=== PATIENT | female | born 1940 | race Caucasian/White ===

== ENCOUNTER 2016-11-18 20:12 | Inpatient (IN) | payer MEDICARE, BC ==
[~2016-11-18] VITALS: Ht 160 cm; Wt 77.9 kg
[2016-11-18] MEDS ORDERED: NEURONTIN300 MG/CAP PO (20:54)
[2016-11-18] MEDS ORDERED: COZAAR 25MG25 MG/TAB PO (20:54)
[2016-11-18] MEDS ORDERED: MUCINEX 60600 MG/TA1 PO (20:55)
[2016-11-18] MEDS ORDERED: MAGNESIUM250 M1 PO (20:55)
[2016-11-18] MEDS ORDERED: HYZAAR 25 MG-101 TAB PO (21:05)
[2016-11-18 21:39] LABS: BASO % 0.2 % (0.0-2.0); EOS % 0.1 % (0-4.0); GRAN # 9.9 (1.4-6.5); LYMPH # 1.2 (1.2-3.4); LYMPH % 9.8 % (20.0-51.0); MEAN CELL VOLUME 91 fl (80.0-100.0); MEAN CORPUSCULAR HGB CONC 35 g/dl (33.0-37.0); MEAN PLATELET VOLUME 9.5 fl (7.4-10.4); MONO # 1.2 (0.1-0.6); MONO % 9.9 % (1.7-9.3); PLATELET COUNT 316 K/mm3 (130-400); RED BLOOD COUNT 3.64 M/mm3 (4.10-5.30); REDCELL DISTRIBUTION WIDTH-CV 12.3 % (11.5-14.5); WHITE BLOOD COUNT 12.5 K/mm3 (4.8-10.8)
[2016-11-18 21:45] LABS: HEMATOCRIT 33.2 % (37.0-47.0); HEMOGLOBIN 11.6 g/dl (12.5-16.0); MEAN CORPUSCULAR HEMOGLOBIN 32 pg (27.0-31.0)
[2016-11-18 21:55] LABS: ADJUSTED CALCIUM 9.6 mg/dL (8.4-10.2); ALANINE AMINOTRANSFERASE 50 U/L (9-52); ALBUMIN 4.1 gm/dL (3.5-5.0); ALKALINE PHOSPHATASE 88 U/L (50-136); ANION GAP 15 mmol/L (7-16); BILIRUBIN,TOTAL 1.4 mg/dL (0.0-1.0); BLOOD UREA NITROGEN 29 mg/dL (7-17); CALCIUM 9.7 mg/dL (8.4-10.2); CARBON DIOXIDE 22 mmol/L (22-30); CHLORIDE 91 mmol/L (98-107); CREATININE, serum 1.61 mg/dL (0.52-1.25); GLUCOSE 111 mg/dL (74-106); SODIUM 128 mmol/L (137-145); TOTAL PROTEIN 7.9 gm/dL (6.4-8.2)
[2016-11-18 22:04] LABS: B-TYPE NATRIURETIC PEPTIDE 319 pg/mL (0-450); TROPONIN-I < 0.012 ng/mL (0.000-0.034)
[2016-11-18 22:09] LABS: C-REACTIVE PROTEIN 14.6 mg/dL (0.0-0.9)
[2016-11-18 22:20] LABS: PH 6 (5-8); SQUAMOUS EPITHELIAL 0-2 /hpf; URINE APPEARANCE Clear; URINE BACTERIA Rare /hpf; URINE BILIRUBIN Negative (NEGATIVE); URINE BLOOD Negative (NEGATIVE); URINE COLOR Yellow; URINE GLUCOSE Negative (NEGATIVE); URINE KETONE Trace (NEGATIVE); URINE UROBILINOGEN >=4.0 mg/dL (NEGATIVE)
[2016-11-18 22:47] LABS: INFLUENZA B NEGATIVE
[2016-11-18 23:52] VITALS: BP 113/76; PULSE 79; TEMP 98
[2016-11-19] MEDS ORDERED: NYQUIL GENERIC PO (00:16)
[2016-11-19 04:36] VITALS: BP 116/49; PULSE 77; TEMP 98.3
[2016-11-19 08:16] VITALS: BP 104/52; PULSE 66; TEMP 97.8
[2016-11-19 09:37] LABS: CALCIUM 8.8 mg/dL (8.4-10.2); CREATININE, serum 1.52 mg/dL (0.52-1.25); POTASSIUM 4.2 mmol/L (3.4-5.0)
[2016-11-19 11:10] LABS: FRACTIONAL EXCRETION OF NA+ 0.7 %
[2016-11-19 13:19] VITALS: BP 108/53; PULSE 58; TEMP 98.5
[2016-11-19 16:34] VITALS: BP 105/55; PULSE 62; TEMP 97.9
[2016-11-19 20:08] VITALS: BP 116/51; PULSE 58; TEMP 98.2
[2016-11-19 23:29] VITALS: BP 112/49; PULSE 74; TEMP 98
[2016-11-20 03:09] VITALS: BP 118/55; PULSE 54; TEMP 98.2
[2016-11-20 08:01] VITALS: BP 142/55; PULSE 61; TEMP 98.9
[2016-11-20 10:06] LABS: BASO % 0.1 % (0.0-2.0); EOS % 0.5 % (0-4.0); GRAN # 6.5 (1.4-6.5); GRAN % 78.5 % (42.2-75.2); LYMPH # 0.9 (1.2-3.4); LYMPH % 10.6 % (20.0-51.0); MEAN CORPUSCULAR HGB CONC 33 g/dl (33.0-37.0); MEAN PLATELET VOLUME 9.8 fl (7.4-10.4); MONO # 0.7 (0.1-0.6); MONO % 8.9 % (1.7-9.3); PLATELET COUNT 331 K/mm3 (130-400); RED BLOOD COUNT 2.97 M/mm3 (4.10-5.30); REDCELL DISTRIBUTION WIDTH-CV 12.5 % (11.5-14.5); WHITE BLOOD COUNT 8.3 K/mm3 (4.8-10.8)
[2016-11-20 10:19] LABS: HEMATOCRIT 28.6 % (37.0-47.0); HEMOGLOBIN 9.4 g/dl (12.5-16.0); MEAN CELL VOLUME 96 fl (80.0-100.0); MEAN CORPUSCULAR HEMOGLOBIN 32 pg (27.0-31.0)
[2016-11-20 10:28] LABS: CALCIUM 8.4 mg/dL (8.4-10.2); CREATININE, serum 1.37 mg/dL (0.52-1.25)
[2016-11-20 11:55] VITALS: BP 123/53; PULSE 54; TEMP 98.4
[2016-11-20 15:33] VITALS: BP 153/59; PULSE 58; TEMP 98.3
[2016-11-20 19:58] VITALS: BP 142/55; PULSE 53; TEMP 97.3
[2016-11-20 23:19] VITALS: BP 135/60; PULSE 42; TEMP 97.4
[2016-11-21 04:32] VITALS: BP 131/54; PULSE 44; TEMP 97.4
[2016-11-21 08:23] VITALS: BP 143/63; PULSE 52; TEMP 97.7
[2016-11-21 09:37] LABS: BASO % 0.1 % (0.0-2.0); EOS % 0.1 % (0-4.0); GRAN # 5.7 (1.4-6.5); GRAN % 71.7 % (42.2-75.2); LYMPH # 1.3 (1.2-3.4); LYMPH % 15.9 % (20.0-51.0); MEAN CELL VOLUME 97 fl (80.0-100.0); MEAN CORPUSCULAR HGB CONC 33 g/dl (33.0-37.0); MEAN PLATELET VOLUME 9.9 fl (7.4-10.4); MONO # 0.9 (0.1-0.6); MONO % 10.8 % (1.7-9.3); PLATELET COUNT 342 K/mm3 (130-400); RED BLOOD COUNT 2.96 M/mm3 (4.10-5.30); REDCELL DISTRIBUTION WIDTH-CV 12.4 % (11.5-14.5); WHITE BLOOD COUNT 7.9 K/mm3 (4.8-10.8)
[2016-11-21 09:40] LABS: HEMATOCRIT 28.6 % (37.0-47.0); HEMOGLOBIN 9.3 g/dl (12.5-16.0); MEAN CORPUSCULAR HEMOGLOBIN 31 pg (27.0-31.0)
[2016-11-21 09:49] LABS: CALCIUM 8.5 mg/dL (8.4-10.2); CREATININE, serum 1.16 mg/dL (0.52-1.25); POTASSIUM 3.9 mmol/L (3.4-5.0)
[2016-11-21 12:21] VITALS: BP 144/66; PULSE 46; PULSE 57; TEMP 97.9
[2016-11-21 17:18] VITALS: BP 147/55; PULSE 47; TEMP 98.3
[2016-11-21 20:25] VITALS: BP 157/65; PULSE 56; TEMP 98.1
[2016-11-22 00:10] VITALS: BP 159/54; PULSE 47; TEMP 97.7
[2016-11-22 03:46] VITALS: BP 138/58; PULSE 49; TEMP 97.9
[2016-11-22 07:12] LABS: MEAN CELL VOLUME 95 fl (80.0-100.0); MEAN CORPUSCULAR HGB CONC 33 g/dl (33.0-37.0); MEAN PLATELET VOLUME 9.8 fl (7.4-10.4); PLATELET COUNT 356 K/mm3 (130-400); RED BLOOD COUNT 2.91 M/mm3 (4.10-5.30); REDCELL DISTRIBUTION WIDTH-CV 12.3 % (11.5-14.5); WHITE BLOOD COUNT 7.7 K/mm3 (4.8-10.8)
[2016-11-22 07:18] LABS: CALCIUM 8.8 mg/dL (8.4-10.2); CREATININE, serum 1.17 mg/dL (0.52-1.25); POTASSIUM 4.1 mmol/L (3.4-5.0)
[2016-11-22 07:21] LABS: ADD PATHOLOGY DIFF REVIEW NO; HEMATOCRIT 27.6 % (37.0-47.0); HEMOGLOBIN 9.1 g/dl (12.5-16.0); MEAN CORPUSCULAR HEMOGLOBIN 31 pg (27.0-31.0)
[2016-11-22 08:15] LABS: BAND 2 % (0-10); NEUTROPHILS 71 % (42.0-75.2); TOTAL CELLS COUNTED 100
[2016-11-22 08:16] LABS: PLATELET ESTIMATE NORMAL (NORMAL)
[2016-11-22 08:25] VITALS: BP 150/57; PULSE 50; TEMP 97.8
[2016-11-22] MEDS ORDERED: CLARITIN 1010 MG/TAB PO (10:43)
[2016-11-22] MEDS ORDERED: PROAIR HFA0.09 MG/AC IH (10:44)
[2016-11-22] MEDS ORDERED: OMNICEF 300MG300 MG PO (10:44)
[2016-11-22] MEDS ORDERED: FLONASE NASAL S16 GM NS (10:48)
[2016-11-22] MEDS ORDERED: ROBITUSSIN A-C S1 M1 PO (10:49)
[2016-11-22] MEDS ORDERED: PREDNISONE20 MG PO (10:58)
[2016-11-22] MEDS ORDERED: COZAAR100 MG PO (11:11)
[2016-11-22 12:19] VITALS: BP 136/61; PULSE 62; TEMP 97.8
== END 2016-11-22 12:40 | disposition home or self-care (01) | DRG 194 ==
LOC: COL.ER 20:12 → MEDICAL 22:46
PROVIDERS: Emergency Medicine; Internal Medicine; Nurse Practitioner Family
DX: J18.9 Pneumonia, unspecified organism (principal); N17.9 Acute kidney failure, unspecified; N39.0 Urinary tract infection, site not specified; E87.1 Hypo-osmolality and hyponatremia; J20.9 Acute bronchitis, unspecified; E86.0 Dehydration; I10 Essential (primary) hypertension; D64.9 Anemia, unspecified; Z87.891 Personal history of nicotine dependence; J01.90 Acute sinusitis, unspecified
CPT/HCPCS: 99223-AI; 99232-AI; 99239; J0456; J0696; J1644; J2405; J7030; J7050; J7512

== ENCOUNTER → 2017-05-20 | Outpatient (CLI) | payer MEDICARE, BC ==
[~2017-05-20] MED LIST: CLARITIN 1010 MG/TAB PO; COZAAR 25MG25 MG/TAB PO; COZAAR100 MG PO; FLONASE NASAL S16 GM NS; HYZAAR 25 MG-101 TAB PO; MAGNESIUM250 M1 PO; MUCINEX 60600 MG/TA1 PO; NEURONTIN300 MG/CAP PO; NYQUIL GENERIC PO; OMNICEF 300MG300 MG PO; PREDNISONE20 MG PO; PROAIR HFA0.09 MG/AC IH; ROBITUSSIN A-C S1 M1 PO
== END ==
LOC: MC.RAD 11:20
DX: Z12.31 Encounter for screening mammogram for malignant neoplasm of breast (principal)

== ENCOUNTER 2017-11-18 10:42 | Emergency (ER) | payer MEDICARE, BC ==
[~2017-11-18] VITALS: Ht 160 cm; Wt 69.1 kg
[2017-11-18 10:54] VITALS: BP 191/84; PULSE 55; TEMP 97.5
== END 2017-11-18 12:55 | disposition home or self-care (01) ==
LOC: COL.ER 10:42
DX: S01.81XA Laceration without foreign body of other part of head, initial encounter (principal); S41.112A Laceration without foreign body of left upper arm, initial encounter; I10 Essential (primary) hypertension; W18.39XA Other fall on same level, initial encounter; W22.8XXA Striking against or struck by other objects, initial encounter; Y92.009 Unspecified place in unspecified non-institutional (private) residence as the place of occurrence of the external cause; Y93.B9 Activity, other involving muscle strengthening exercises

== ENCOUNTER 2017-11-24 13:58 | Emergency (ER) | payer MEDICARE, BC ==
[2017-11-24 14:10] VITALS: BP 134/92; PULSE 51; TEMP 98.1
[2017-11-24] MEDS ORDERED: CEPHALEXIN500 M1 PO (14:38)
== END 2017-11-24 14:55 | disposition home or self-care (01) ==
LOC: COL.ER 13:58
DX: S01.81XD Laceration without foreign body of other part of head, subsequent encounter (principal); X58.XXXD Exposure to other specified factors, subsequent encounter

== ENCOUNTER 2018-05-27 16:11 | Emergency (ER) | payer MEDICARE, BC ==
[~2018-05-27] VITALS: Ht 157.5 cm; Wt 65.9 kg
[~2018-05-27 16:11] MED LIST changes: +CEPHALEXIN500 M1 PO
[2018-05-27 16:23] VITALS: BP 164/80; PULSE 59; TEMP 98.6
== END 2018-05-27 17:49 | disposition home or self-care (01) ==
LOC: COL.ER 16:11
DX: L08.9 Local infection of the skin and subcutaneous tissue, unspecified (principal)

== ENCOUNTER → 2018-06-20 | Outpatient (CLI) | payer MEDICARE, BC | LOC: MC.RAD 11:40 | DX: Z12.31 Encounter for screening mammogram for malignant neoplasm of breast (principal) ==

== ENCOUNTER → 2019-09-21 | Outpatient (CLI) | payer MEDICARE, BC ==
[~2019-09-21] MED LIST changes: +CALTRATE 600 +1 TAB PO; +DULCOLAX STOOL100 MG PO; +MAG-OX 400400 MG/TAB PO; +NEURONTIN600 MG/TAB PO; +PERCOCET 325 MG1 TA2 PO; +TOPROL XL100 MG PO; +TYLENOL PM EXTR1 TA1 PO; +UNISOM25 MG PO; +VITAMIND3 5000 PO
== END ==
LOC: MC.RAD 10:26
DX: Z12.31 Encounter for screening mammogram for malignant neoplasm of breast (principal)

== ENCOUNTER 2020-06-04 11:44 | Day surgery (SDC) | payer MEDICARE, BC ==
[~2020-06-04] VITALS: Ht 162.6 cm; Wt 80.1 kg
[2020-06-04] VITALS (93 sets, daily range): BP systolic 114–184; BP diastolic 48–91; PULSE 51–70; TEMP 97.5–99.2; O2SAT 94–100
[2020-06-04] MEDS ORDERED: TOPROL XL100 MG PO (12:36)
[2020-06-04] MEDS ORDERED: ASPIRIN E.C. 8181 MG PO (12:39)
[2020-06-04] MEDS ORDERED: NITRO-DUR0.1 MG/PAT TD (12:40)
[2020-06-04 13:13] LABS: HEMATOCRIT 38.2 % (37.0-47.0); HEMOGLOBIN 12.8 g/dl (12.5-16.0); MEAN CELL VOLUME 95 fl (80.0-100.0); MEAN CORPUSCULAR HEMOGLOBIN 32 pg (27.0-31.0); MEAN CORPUSCULAR HGB CONC 34 g/dl (33.0-37.0); MEAN PLATELET VOLUME 10.3 fl (7.4-10.4); PLATELET COUNT 187 K/mm3 (130-400); RED BLOOD COUNT 4.03 M/mm3 (4.10-5.30)
[2020-06-04 13:14] LABS: PROTHROMBIN TIME 10.6 SECONDS (9.7-12.8)
[2020-06-04 13:17] LABS: PARTIAL THROMBOPLASTIN TIME 20.5 SECONDS (26.0-37.0)
[2020-06-04 13:26] LABS: CALCIUM 9.3 mg/dL (8.4-10.2); CREATININE, serum 1.27 (0.52-1.25); POTASSIUM 4.2 mmol/L (3.4-5.0)
--- NOTE | 2020-06-04 13:51 | NUR ---
SEE MERGE FOR MEDICATION ADMINISTRATION TIMES AND INTRA AND POST SEDATION ASSESSMENTS.
--- NOTE | 2020-06-04 15:25 | NUR ---
Pt is back from concrete laborer, she is awake and alert, pwd, no chest pain. nitro drip infusing at 10mcg/min to RAC with 1/2 ns carrier at 100cc/hr. Rt radial site looks good without any bleeding or hematoma, no numbness reported to rt hand. cms intact. wctm.
--- NOTE | 2020-06-04 15:26 | NUR ---
PT TRANSPORTED BACK TO [facility] FROM [facility] UNTIL ADMISSIONS HAS A ROOM AVAILABLE. PT IS ALERT AND ORIENTED. PT HAS NITROGLYCERIN INFUSING AT 10MCG/HR PER DR. KEVIN CRESPO. HEMOSTASIS NOTED TO RIGHT WRIST, TR BAND IN PLACE WITH 11 IN THE BAND. PT HAS NO CONCERNS OR NEEDS AT THIS TIME. AMY VITALE WILL ASSUME CARE AND HAS RECIEVED BEDSIDE REPORT FROM THIS NURSE.
--- NOTE | 2020-06-04 18:29 | NUR ---
PT UP TO BS COMMODE AT THIS TIME. STEADY ON HER FEET. DINNER ORDERED.
--- NOTE | 2020-06-04 18:48 | NUR ---
Pt is sitting up at edge of bed, she has been able to eat dinner with no problem, tightness under ribcage has gone away/ pt does report neck and back stiffness. Neck and back massaged with some relief.
--- NOTE | 2020-06-04 19:30 | NUR ---
PT TRASNFERRED BY AMBULATION TO ICU 6. BEDSIDE REPORT RECEIVED FROM AMY VITALE FROM [facility]. PT PLACED ON BEDSIDE CONTINUOUS MONITOR AND CALL LIGHT EDUCAITON GIVEN, VERBALIZED UNDERSTANDING. PT PLACED IN RECLINER AND CALL LIGHT WITHIN REACH. VSS. PT DENIES ANY CP/PRESSURE. PT ON RA.
--- NOTE | 2020-06-04 19:30 | NUR ---
TR BAND OFF AT 1900, SITE DRESSED WITH BANDAID, THEN FOLDED 2X2 WITH COBAN DRESSING. CMS REMAINS INTACT, NO HEMATOMA OR BLEEDING AT THIS TIME. SPLINT REAPPLIED. PT IS AMBULATORY WITH STEADY GAIT TO BATHROOM, THEN TO HER ROOM IN ICU WHERE BEDSIDE REPORT IS GIVEN TO KALEIGH REYES.
[2020-06-05] VITALS (368 sets, daily range): BP systolic 122–126; BP diastolic 53–77; PULSE 60–70; TEMP 97.6–98.4; O2SAT 92–100
[2020-06-05 07:04] LABS: RED BLOOD COUNT 3.84 M/mm3 (4.10-5.30)
[2020-06-05 07:05] LABS: BASO % 0.3 % (0.0-2.0); EOS # 0.2 (0.0-0.7); EOS % 2.2 % (0-4.0); GRAN # 4.9 (1.4-6.5); GRAN % 70.5 % (42.2-75.2); HEMATOCRIT 36.1 % (37.0-47.0); HEMOGLOBIN 12.1 g/dl (12.5-16.0); LYMPH # 1.2 (1.2-3.4); LYMPH % 17.3 % (20.0-51.0); MEAN CELL VOLUME 94 fl (80.0-100.0); MEAN CORPUSCULAR HEMOGLOBIN 32 pg (27.0-31.0); MEAN CORPUSCULAR HGB CONC 34 g/dl (33.0-37.0); MONO # 0.7 (0.1-0.6); MONO % 9.4 % (1.7-9.3); PLATELET COUNT 189 K/mm3 (130-400); REDCELL DISTRIBUTION WIDTH-CV 13.1 % (11.5-14.5)
[2020-06-05 09:06] LABS: CALCIUM 8.9 mg/dL (8.4-10.2); CREATININE, serum 1.1 (0.52-1.25); POTASSIUM 3.7 mmol/L (3.4-5.0)
--- NOTE | 2020-06-05 10:03 | NUR ---
Initial visit; Patient thanked Insulation And Flooring Assembler for looking in on her and offering God's blessings.
[2020-06-05] MEDS ORDERED: BRILINTA90 MG PO (10:36)
[2020-06-05] MEDS ORDERED: LIPITOR 80MG80 MG PO (10:37)
--- NOTE | 2020-06-05 12:21 | NUR ---
Patient transfered from ICU to ED entrance for discharge at this time. Daughter met at entrance to drive patient home. Patient felt all questions had been answered and all belongings had been packed and take with for discharge.
--- NOTE | 2020-06-05 13:53 | NUR ---
Operations Lead met with patient to discuss discharge planning. Patient lives alone in [place] and sees Dr. Sy for primary care. Patient obtains medications from [facility] and is concerned about a new medications she was prescribed, Brillinta. YOLANDA contacted patient's pharmacy and even with insurance it will be approximately $400 per month. YOLANDA collaborated with [employer] who provided Brillinta card to patient, which will cover first month's supply. [employer] advised after one month, patient will be switched to Plavix. [facility] and was advised that francois rodríguez for this medication is $40 for thirty day supply. SW provided this update to patient who is in agreement and has no other concerns. Patient to return home today. No additional needs at this time.
== END 2020-06-05 12:21 | disposition home or self-care (01) ==
LOC: COL.CAR 11:44 → ICU 19:53 → COL.CAR 06-05 12:21
PROVIDERS: Internal Medicine Cardiovascular Disease
DX: I25.110 Atherosclerotic heart disease of native coronary artery with unstable angina pectoris (principal); I12.9 Hypertensive chronic kidney disease with stage 1 through stage 4 chronic kidney disease, or unspecified chronic kidney disease; N18.3 Chronic kidney disease, stage 3 (moderate); I08.1 Rheumatic disorders of both mitral and tricuspid valves; D64.9 Anemia, unspecified; E78.2 Mixed hyperlipidemia; I47.1 Supraventricular tachycardia; I83.90 Asymptomatic varicose veins of unspecified lower extremity; R00.1 Bradycardia, unspecified; M85.80 Other specified disorders of bone density and structure, unspecified site; G62.9 Polyneuropathy, unspecified; G47.00 Insomnia, unspecified; M48.02 Spinal stenosis, cervical region; M79.89 Other specified soft tissue disorders; I83.819 Varicose veins of unspecified lower extremity with pain; Z85.828 Personal history of other malignant neoplasm of skin; Z95.0 Presence of cardiac pacemaker; Z79.82 Long term (current) use of aspirin; Z79.899 Other long term (current) drug therapy; Z80.9 Family history of malignant neoplasm, unspecified; Z82.3 Family history of stroke; Z82.49 Family history of ischemic heart disease and other diseases of the circulatory system
CPT/HCPCS: OP; C1725; C1769; C1874; C1887; C9600; J0583; J1644; J2250; J3010; Q9967

== ENCOUNTER 2020-12-12 11:46 | Outpatient (RCR) | payer SELFPAY ==
[~2020-12-12 11:46] MED LIST changes: +ASPIRIN E.C. 8181 MG PO; +BRILINTA90 MG PO; +LIPITOR 80MG80 MG PO; +NITRO-DUR0.1 MG/PAT TD
== END 2020-12-14 | disposition home or self-care (01) ==
LOC: COL.CR
DX: Z02.89 Encounter for other administrative examinations (principal)

== ENCOUNTER 2021-03-11 17:07 | Outpatient (RCR) | payer SELFPAY ==
[2021-09-03] MEDS ORDERED: BRILINTA90 MG PO (12:08)
[2021-09-03] MEDS ORDERED: LIPITOR 80MG80 MG PO (12:10)
[2021-09-03] MEDS ORDERED: TOPROL XL 25MG25 MG PO (12:10)
[2021-09-03] MEDS ORDERED: TYLENOL PM EXTR1 TA1 PO (12:12)
[2021-09-03] MEDS ORDERED: LASIX 20MG TABL20 MG PO (12:13)
== END 2021-03-15 | disposition home or self-care (01) ==
LOC: COL.CR
DX: Z02.89 Encounter for other administrative examinations (principal)

== ENCOUNTER 2021-06-12 13:14 | Outpatient (RCR) | payer SELFPAY ==
[2021-09-03] MEDS ORDERED: BRILINTA90 MG PO (12:08)
[2021-09-03] MEDS ORDERED: TOPROL XL 25MG25 MG PO (12:10)
[2021-09-03] MEDS ORDERED: LIPITOR 80MG80 MG PO (12:10)
[2021-09-03] MEDS ORDERED: TYLENOL PM EXTR1 TA1 PO (12:12)
[2021-09-03] MEDS ORDERED: LASIX 20MG TABL20 MG PO (12:13)
== END 2021-06-14 | disposition home or self-care (01) ==
LOC: COL.CR
DX: Z02.89 Encounter for other administrative examinations (principal)

== ENCOUNTER → 2021-09-07 | Outpatient (CLI) | payer MEDICARE, BC ==
[~2021-09-07] VITALS: Ht 162.6 cm; Wt 56.1 kg
[~2021-09-07] MED LIST changes: +CITRUCEL WITH500 MG PO; +LASIX 20MG TABL20 MG PO; +ROXICODONE 55 MG/TAB PO; +TOPROL XL 25MG25 MG PO
[2021-09-07 13:25] VITALS: BP 127/83; PULSE 67
[2021-09-07 13:30] VITALS: BP 147/79; PULSE 61
[2021-09-07 13:45] VITALS: BP 136/71; PULSE 60
== END ==
LOC: COL.RAD 08-20 13:15
DX: H91.22 Sudden idiopathic hearing loss, left ear (principal)
CPT/HCPCS: J2250; J2704

== ENCOUNTER 2021-10-05 12:39 | Inpatient (IN) | payer MEDICARE, BC ==
[~2021-10-05] VITALS: Ht 157.5 cm; Wt 67.5 kg
[~2021-10-05 12:39] MED LIST changes: -CITRUCEL WITH500 MG PO; -ROXICODONE 55 MG/TAB PO
[2021-10-14] VITALS (10 sets, daily range): BP systolic 116–152; BP diastolic 53–73; PULSE 49–68; TEMP 98–978.3
--- NOTE | 2021-10-14 11:00 | NUR ---
PATIENT BROUGHT BACK TO [facility], AMBULATED WITHOUT DIFFICULTY. PATIENT IS ALERT AND ORIENTED. CONSENT AND HISTORY REVIEWED AND SIGNED. VITAL SIGNS STABLE. DAUGHTER DEMOND AT BEDSIDE. DENTURES, HEARING AID, AND GLASSES REMOVED AND LABELED. PLACED IN PATIENT BELONGINGS. IV STARTED TO RIGHT FOREARM, INFUSING WITHOUT DIFFICULTY. HEART SOUNDS REGULAR, LUNG SOUNDS CLEAR, BOWEL SOUNDS ACTIVE. WARM BLANKET PROVIDED, CALL PARRA WITHIN REACH. 1140- PER PROPERTY TECHNICIAN PLEASE BRING PATIENT TO PACU. TRANSPORTED VIA CART. DEANDRE BARCENAS AT BEDSIDE. JONE RN AT BEDSIDE. ALL BELONGINGS BROUGHT TO PACU. DAUGHTER PLACED IN WAITING ROOM. ALL SAFETY MAINTAINED.
[2021-10-14] MEDS ORDERED: CITRUCEL WITH500 MG PO (11:44)
--- NOTE | 2021-10-14 16:20 | NUR ---
Report received from Nadine MANUFACTURING ENGINEER. Patient had a right robotic hemicolectomy. Patient is A & O, talking, and vital signs are stable. Patient has NKA. Patient has 5 incisions covered with band-aids. Patient is not experiencing any discomfort at this time. Patient's daughter, Nisa, accompanied her to room. Call light and bedside table are within reach. Will continue to monitor patient throughout shift.
[2021-10-15 00:02] VITALS: BP 118/45; PULSE 60; TEMP 98.2
[2021-10-15 03:45] VITALS: BP 137/59; PULSE 63; TEMP 98.1
--- NOTE | 2021-10-15 06:19 | NUR ---
PT STATES THAT SHE THINKS SHE SLEPT WELL THROUGH NIGHT ON HER SIDE, STATES THAT BACK PAIN IS MUCH BETTER FROM LAST NIGHT. HOOPER CATHETER DRAINING LIGHT CHEO CLEAR URINE. PT IS ENCOURAGED TO DRINK FLUIDS. IV WAS SALINE LOCKED @ 2000 YESTERDAY. PT TOLERATING PO INTAKE WELL, NO NAUSEA OR ABDOMINAL PAIN. ABDOMEN IS DISTENDED. PT REPORTS BELCHING BUT FLATUS IS NOT YET PRESENT, HAS BEEN FREQUENTLY CHEWING GUM. PT DID AMBULATE LAST NIGHT TO IPR DESK ET THEN BACK TO ROOM, TOLERATED WELL ET GAIT WAS STEADY, GAIT BELT ET 2 ASSIST USED. PT DENIES OTHER NEEDS. RESPIRATIONS UNLABORED ON ROOM AIR. CALL LIGHT WITHIN REACH.
[2021-10-15 06:55] LABS: HEMOGLOBIN 10.7 g/dl (12.5-16.0); MEAN CELL VOLUME 92 fl (80.0-100.0); MEAN CORPUSCULAR HEMOGLOBIN 31 pg (27.0-31.0); MEAN CORPUSCULAR HGB CONC 34 g/dl (33.0-37.0); MEAN PLATELET VOLUME 10.9 fl (7.4-10.4); PLATELET COUNT 212 K/mm3 (130-400); RED BLOOD COUNT 3.42 M/mm3 (4.10-5.30); REDCELL DISTRIBUTION WIDTH-CV 13.7 % (11.5-14.5)
[2021-10-15 06:58] LABS: HEMATOCRIT 31.3 % (37.0-47.0)
--- NOTE | 2021-10-15 06:58 | NUR ---
Report received from AMY Baker. Patient is sleeping in bed. Call light and bedside table are within reach. Will continue to montior patient throughout shift.
[2021-10-15 07:13] LABS: CALCIUM 8.9 mg/dL (8.4-10.2); CREATININE, serum 1.18 mg/dL (0.57-1.11); POTASSIUM 4.1 mmol/L (3.5-4.5)
[2021-10-15 07:55] LABS: BAND 9 % (0-10); LYMPHOCYTE 3 % (20.0-51.0); NEUTROPHILS 88 % (42.0-75.2); PLATELET ESTIMATE NORMAL (NORMAL); SCHISTOCYTES 1+
[2021-10-15 08:36] VITALS: BP 134/68; PULSE 73; TEMP 97.6
--- NOTE | 2021-10-15 09:45 | NUR ---
This nurse DC'd patient's catheter and she tolerated it well.
--- NOTE | 2021-10-15 10:50 | NUR ---
tin worker met with patient to discuss discharge plan. Patient reports that she lives at home alone here in [place]. Patient's daughter Nisa ([phone]) present at bedside. Patient reports that she is independent with her activities of daily living with no DME or oxygen needs. PCP is Dr. Sy and she utilizes [facility] for perscripts with no cost difficulty. Patient reports that she does have a DPOA-HC established and that she has a copy of it at home. Patient is planning on returning home with the support of her daughter. Discharge plan: Home with family support
[2021-10-15 12:42] VITALS: BP 126/60; PULSE 65; TEMP 97.3
[2021-10-15 15:22] VITALS: BP 133/60; PULSE 61; TEMP 98
[2021-10-15 20:25] VITALS: BP 160/73; PULSE 77; TEMP 98
[2021-10-16 00:10] VITALS: BP 108/55; PULSE 51; TEMP 97.9
[2021-10-16 03:18] VITALS: BP 131/53; PULSE 64; TEMP 97.7
--- NOTE | 2021-10-16 06:27 | NUR ---
PT SLEEPING IN BED @ THIS TIME. K-PAD ON BACK FOR PAIN. PT HAS BEEN UP TO BR WITH SBA ASSISTANCE DURING NIGHT TO VOID, HAS NOT HAD A BM OR FLATUS. ABDOMEN IS DISTENDED, BANDAIDS CDI TO INCISIONS. PT HAS BEEN CHEWING GUM ET WALKED WITH DAUGHTER IN HALLWAY LAST NIGHT.
[2021-10-16 07:22] VITALS: BP 125/63; PULSE 65; TEMP 97.9
--- NOTE | 2021-10-16 07:47 | NUR ---
Patient resting in bed. I did call this am, Labs ordered. Reviewed with patient ERAS protocol, she plans on walking halls when her daughter arrives this am. Breakfast ordered, I did discuss a low fiber diet with patient. She denies nausea. Abdomen soft, rounded. Bowels audible. She denies yet passing flatus. bandaids intact to lap sites. Scds. Patient using her IS. Will monitor.
[2021-10-16 09:46] LABS: CALCIUM 8.6 mg/dL (8.4-10.2); CREATININE, serum 1.42 mg/dL (0.57-1.11); POTASSIUM 3.7 mmol/L (3.5-4.5)
[2021-10-16] MEDS ORDERED: ROXICODONE 55 MG/TAB PO (11:00)
[2021-10-16 11:35] VITALS: BP 136/71; PULSE 69; TEMP 97.7
--- NOTE | 2021-10-16 12:28 | NUR ---
Patient sitting up in chair. rounded. Ivf started per orders. Plan of care reviewed. Patient was up to the bathroom & had a small loose stool, voiding adequately. I did discussed with patient limiting free water, gatorade provided. Her daughter at bedside. Will monitor.
--- NOTE | 2021-10-16 14:58 | NUR ---
Patient up ambulating the halls with her daughter. She had another Loose dark BM. Provided with fresh gown & new brief. Will monitor.
--- NOTE | 2021-10-16 16:29 | NUR ---
Michelle resting in bed. Pain rating 3/10. Tylenol per ERAS schedule. She is drinking hot tea. Her and her daughter ambulated halls again. Will monitor.
[2021-10-16 18:07] VITALS: BP 128/57; PULSE 65; TEMP 97.6
--- NOTE | 2021-10-16 19:11 | NUR ---
Patient had 2 more loose BM. tolerated dinner. daugher remains at bedside. bedside report to jose carlos sherman
[2021-10-16 19:41] VITALS: BP 129/63; PULSE 60; TEMP 97.5
[2021-10-17] VITALS (7 sets, daily range): BP systolic 109–156; BP diastolic 49–74; PULSE 51–121; TEMP 97.5–98.1
--- NOTE | 2021-10-17 04:55 | NUR ---
PT SLEEPING IN BED @ THIS TIME. PT HAS BEEN UP TO BR WITH SBA TO VOID ET HAS HAD 3 LOOSE STOOLS. URINE IS CLEAR YELLOW. STOOLS HAVE BEEN LIQUID, DARK ET BRIGHT RED TINGED. PT EXPRESSES CONCERN OVER COLOR OF HER STOOLS. PT REASSURED THAT STOOLS MAY BE BLOODY AFTER SURGERY BUT WILL PASS INFORMATION ON IN SHIFT REPORT. PT'S BACK PAIN HAS IMPROVED BUT STATES THAT PAIN HAS BEEN IN HER LEFT ABDOMEN TONIGHT. PAIN IS CONTROLLED WITH SCHEDULED TYLENOL ET MOTRIN. DRESSINGS ON ABDOMINAL INCISIONS ARE CDI. IVF INFUSING.
[2021-10-17 06:46] LABS: CREATININE, serum 1.03 mg/dL (0.57-1.11); POTASSIUM 4.3 mmol/L (3.5-4.5)
--- NOTE | 2021-10-17 09:43 | NUR ---
Patient resting in bed. Dr. Kiser rounded this am. Plan of care reviewed. Patient concered about her bowels. aware, am Lovenox held. Breakfast ordered. Abdomen soft. Incision dressings CDI. Iv DC per orders. Patient hopeful for DC home today, labs improved.
--- NOTE | 2021-10-17 11:06 | NUR ---
Patient ambulated halls with daughter. SHe has had another loose stool, blood tinged. Will monitor
--- NOTE | 2021-10-17 14:12 | NUR ---
Patient sitting up in chair, tolerated lunch. her daughter at bedside.
--- NOTE | 2021-10-17 14:51 | NUR ---
Patient ambulating the halls with her daughter.
--- NOTE | 2021-10-17 18:02 | NUR ---
Patient resting in bed. Reports pain, wanting roxicodone with her dinner for pain to prepare her for bedtime, so she can get some rest. Patietn was up to the bathroom & did not have Bm for the first time today. She was glad about this. rounded this evening & plan of care reviewed. Will monitor & report off to nightnurse.
[2021-10-18 03:55] VITALS: BP 118/60; PULSE 77; TEMP 98
--- NOTE | 2021-10-18 04:49 | NUR ---
RESTING QUIETLY/SLEEPING MOST OF THE NIGHT. NO N/V. NO NEW REPORTS OF BLLOD IN STOOL FROM PT. SCHEDULED TYLENOL FOR PAIN.
[2021-10-18 06:35] LABS: BASO % 0.4 % (0.0-2.0); EOS # 0.1 K/mm3 (0.0-0.7); EOS % 1.1 % (0-4.0); GRAN # 5.4 K/mm3 (1.4-6.5); GRAN % 68.6 % (42.2-75.2); LYMPH # 1.5 K/mm3 (1.2-3.4); LYMPH % 19.3 % (20.0-51.0); MEAN CELL VOLUME 95 fl (80.0-100.0); MEAN CORPUSCULAR HGB CONC 33 g/dl (33.0-37.0); MEAN PLATELET VOLUME 11.1 fl (7.4-10.4); MONO # 0.8 K/mm3 (0.1-0.6); PLATELET COUNT 178 K/mm3 (130-400); RED BLOOD COUNT 2.82 M/mm3 (4.10-5.30); REDCELL DISTRIBUTION WIDTH-CV 14.3 % (11.5-14.5)
[2021-10-18 07:15] VITALS: BP 135/59; PULSE 60; TEMP 98
[2021-10-18 07:54] LABS: HEMOGLOBIN 8.9 g/dl (12.5-16.0); MEAN CORPUSCULAR HEMOGLOBIN 32 pg (27.0-31.0)
[2021-10-18 07:55] LABS: HEMATOCRIT 26.8 % (37.0-47.0)
--- NOTE | 2021-10-18 08:00 | NUR ---
PATIENT IS A&O. VSS. PATIENT REPORTS MILD TENDERNESS & GAS PAIN AT ROBOTIC SITES. NOTED ABD LAP SITES X5 THAT ARE CD&I. ABD IS ROUND, SOFT AND WITH POSITIVE BOWL SOUNDS. NO C/O N/V. AM MEDS GIVEN. BREAKFAST TRAY ORDERED. HEAD TO TOE ASSESSMENT COMPLETE. PATIENT IS INDEPENDENT IN ROOM. GAIT STEADY. NO OTHER NEEDS AT THIS TIME. CALL LIGHT IN REACH.
[2021-10-18 11:12] VITALS: BP 91/48; PULSE 62; TEMP 98.2
--- NOTE | 2021-10-18 12:25 | NUR ---
PATIENT DISCHARGING HOME WITH DAUGHTER. GAVE DISCHARGE INSTRUCTIONS, E-SCRIPTS SENT, AND DISCUSSED F/U APTS. ANSWERED QUESTIONS/CONCERNS. NO IV SITE. PATIENT IS DRESSED, PACKED AND ESCORTED TO PERSONAL VEHICLE VIA WC. PATIENT DISCHARGED.
== END 2021-10-18 12:10 | disposition home or self-care (01) | DRG 330 ==
LOC: INPTSU 10-14 10:42 → SURG 10-14 14:45
PROVIDERS: Surgery; ADMIT Surgery
PROC: 8E0W4CZ Robotic Assisted Procedure of Trunk Region, Percutaneous Endoscopic Approach (ICD-10-PCS; 2021-10-14)
PROC: 0DTF4ZZ Resection of Right Large Intestine, Percutaneous Endoscopic Approach (ICD-10-PCS; principal; 2021-10-14 14:45)
DX: C18.2 Malignant neoplasm of ascending colon (principal); I13.0 Hypertensive heart and chronic kidney disease with heart failure and stage 1 through stage 4 chronic kidney disease, or unspecified chronic kidney disease; Z95.0 Presence of cardiac pacemaker; Z95.5 Presence of coronary angioplasty implant and graft; E78.00 Pure hypercholesterolemia, unspecified; N18.32 Chronic kidney disease, stage 3b; I50.9 Heart failure, unspecified; D64.9 Anemia, unspecified; I25.10 Atherosclerotic heart disease of native coronary artery without angina pectoris
CPT/HCPCS: A4314; A9284; J0360; J0690; J1100; J1170; J1650; J2250; J2405; J2704; J2795; J3010; J3480; J7120

== ENCOUNTER 2022-02-10 14:41 | Outpatient (RCR) | payer SELFPAY ==
[~2022-02-10 14:41] MED LIST changes: +CITRUCEL WITH500 MG PO; +ROXICODONE 55 MG/TAB PO
== END 2022-02-11 ==
LOC: COL.CR
DX: Z29.8 Encounter for other specified prophylactic measures (principal)

== ENCOUNTER 2022-03-12 15:59 | Outpatient (RCR) | payer SELFPAY | END 2022-03-13 | LOC: COL.CR | DX: Z29.8 Encounter for other specified prophylactic measures (principal) ==

== ENCOUNTER 2022-04-05 12:07 | Outpatient (RCR) | payer SELFPAY | END 2022-04-13 | LOC: COL.CR | DX: Z29.8 Encounter for other specified prophylactic measures (principal) ==

== ENCOUNTER 2022-05-12 14:45 | Outpatient (RCR) | payer SELFPAY | END 2022-05-13 | LOC: COL.CR | DX: Z29.8 Encounter for other specified prophylactic measures (principal) ==

== ENCOUNTER 2022-06-11 13:04 | Outpatient (RCR) | payer SELFPAY | END 2022-06-13 | LOC: COL.CR | DX: Z29.8 Encounter for other specified prophylactic measures (principal) ==

== ENCOUNTER → 2022-07-14 | Outpatient (RCR) | payer SELFPAY | LOC: COL.CR | DX: Z29.8 Encounter for other specified prophylactic measures (principal) ==

== ENCOUNTER → 2022-12-29 | Outpatient (CLI) | payer MEDICARE, BC | LOC: COL.RAD 09:22 | DX: C18.9 Malignant neoplasm of colon, unspecified (principal); N18.30 Chronic kidney disease, stage 3 unspecified; I71.9 Aortic aneurysm of unspecified site, without rupture; K80.20 Calculus of gallbladder without cholecystitis without obstruction ==

== ENCOUNTER → 2023-12-23 | Outpatient (CLI) | payer MEDICARE, BC ==
[~2023-12-23] MED LIST changes: +Barium Sulfate 2% Oral Susp 450 ML X 2 BOTTLES PO SCH; +Iohexol 300 - 100 ML VIAL IV ONE; +NORCO 325 MG-51 TAB PO; +NS 100 ML IV SCH
== END ==
LOC: CANSCHCLI → COL.RAD 12:26
DX: I77.810 Thoracic aortic ectasia (principal); Z85.038 Personal history of other malignant neoplasm of large intestine
CPT/HCPCS: Q9967

== ENCOUNTER 2024-06-19 07:37 | Day surgery (SDC) | payer MEDICARE, BC ==
[~2024-06-19] VITALS: Ht 157.5 cm; Wt 77.7 kg
[2024-06-19] VITALS (17 sets, daily range): BP systolic 99–176; BP diastolic 68–105; PULSE 53–66; TEMP 97
[~2024-06-19 07:37] MED LIST changes: -Barium Sulfate 2% Oral Susp 450 ML X 2 BOTTLES PO SCH; -Iohexol 300 - 100 ML VIAL IV ONE; -NS 100 ML IV SCH
[2024-06-19] MEDS ORDERED: 1/2 NS 1,000 ML IV SCH (08:15)
[2024-06-19 08:26] LABS: HEMATOCRIT 37.7 % (37.0-47.0); HEMOGLOBIN 12.8 g/dl (12.5-16.0); MEAN CELL VOLUME 91 fl (80.0-100.0); MEAN CORPUSCULAR HEMOGLOBIN 31 pg (27-31); MEAN CORPUSCULAR HGB CONC 34 g/dl (33.0-37.0); MEAN PLATELET VOLUME 10.2 fl (7.4-10.4); PLATELET COUNT 161 K/mm3 (130-400); RED BLOOD COUNT 4.13 M/mm3 (4.10-5.30); REDCELL DISTRIBUTION WIDTH-CV 14.3 % (11.5-14.5)
[2024-06-19 08:34] LABS: PARTIAL THROMBOPLASTIN TIME 30.2 SECONDS (26.0-37.0)
[2024-06-19 08:46] LABS: CALCIUM 9.6 mg/dL (8.4-10.2); CREATININE, serum 1.44 mg/dL (0.57-1.11); POTASSIUM 4.5 mEq/L (3.5-4.5)
[2024-06-19] MEDS ORDERED: NEURONTIN600 MG/TAB PO (08:53)
[2024-06-19 09:35] LABS: EOSINOPHIL 2 % (0-4); LYMPHOCYTE 16 % (20.0-51.0); NEUTROPHILS 74 % (42.0-75.2)
[2024-06-19 09:36] LABS: OVALOCYTES 1+; PLATELET ESTIMATE NORMAL (NORMAL)
--- NOTE | 2024-06-19 09:39 | NUR ---
SEE MERGE FOR PROCEDURE DOCUMENTATION
[2024-06-19] MEDS ORDERED: Midazolam 2 MG/2 ML VIAL IV SCH (09:54)
[2024-06-19] MEDS ORDERED: fentaNYL 50 MCG/ML 2 ML VIAL IV SCH (10:01)
[2024-06-19] MEDS ORDERED: Bivalirudin 250 MG in NS 50 ML IV ONE (10:30)
[2024-06-19] MEDS ORDERED: Iohexol 350 - 100 ML VIAL INCOR ONE (10:59)
[2024-06-19] MEDS ORDERED: TOPROL XL 25MG25 MG PO (11:22)
[2024-06-19] MEDS ORDERED: IMDUR 60MG60 MG/TAB PO (11:23)
[2024-06-19] MEDS ORDERED: RANEXA 500MG T500 MG PO (11:23)
[2024-06-19] MEDS ORDERED: PLAVIX 75MG TAB75 MG PO (11:24)
[2024-06-19] MEDS ORDERED: Acetaminophen 500 MG TAB PO PRN (11:30)
--- NOTE | 2024-06-19 12:13 | NUR ---
PATIENT ALERT AND ORIENTED, VSS. FEMSTOP PLACED TO RIGHT GROIN ACCESS SITE WITH 191 OF AIR IN BALLOON. PATIENT TRANSFERRED TO BED VIA SLIDEBOARD AND TRANSPORTED TO [facility]. VITAL SIGNS TAKEN ON ARRIVAL, VSS. INSTRUCTIONS AND PLAN OF CARE REVIEWED WITH PT AND DAUGHTER. PT DENIES PAIN. TRANSFER OF CARE TO AMY FELDER. BED TO LOWEST POSITION, X3 BEDRAILS IN PLACE, CALL LIGHT PLACED WITHIN REACH.
--- NOTE | 2024-06-19 14:10 | NUR ---
Pt assisted to use bedpan. qc lab technician called for assistance to check femostop device, as pressure reading has decreased since pt returned from label tacker. Site remains soft to palpation, no bleeding or oozing from puncture site. Device is adjusted and reinflated. Pt propped on pillow and positioned for comfort. She ate meal tray. Daughter at bedside. Call light in hand.
--- NOTE | 2024-06-19 14:30 | NUR ---
Pt called out with increased pain under femostop device and c/o feeling hot and sweaty. Blood pressures decreased. phlebotomist medical lab assistant nurse Kaelyn called to assist with femostop. Device is deflated and readjusted. Pressure in femostop decreased by Kaelyn in increments. Rt groin site remains soft to palpation. No bleeding or oozing from site. Cool clothe provided for pt's forehead. Cap refill to rt leg remains brisk and pulses at baseline. Pt expresses some relief after repositioning and decreasing pressure in femostop. Will continue to monitor.
--- NOTE | 2024-06-19 14:45 | NUR ---
Kaelyn, ballistics laboratory gunsmith RN states she will notify Dr Lopez of pt's complaint of pain and blood pressures. This nurse remains with pt. Pt remains alert, pulses at baseline. Cap refill to rt leg brisk.
--- NOTE | 2024-06-19 15:00 | NUR ---
Pt feeling better, blood pressures improved and she is no longer feeling flushed. Rt groin site remains soft, no bleeding and discomfort at site improved.
--- NOTE | 2024-06-19 15:56 | NUR ---
Blood pressures have returned to normal range. Frequent adjustments have been made to assist pt with comfort. She complains of back discomfort, states this is not atypical for her when she lays on her back, and has been persistent since procedure. New order for norco was given by Dr Lopez, see MAR. slab stripper staff in room to assist with continued deflating of femostop device.
--- NOTE | 2024-06-19 16:22 | NUR ---
FEMSTOP REMOVED AND MANUAL PRESSURE HELD TO RIGHT GROIN SITE FOR 5 MINUTES. NO BLEEDING OR OOZING NOTED UPON RELEASE OF MANUAL PRESSURE. STERILE GAUZE AND TEGADERM APPLIED TO SITE. RIGHT PEDAL PULSES PALPABLE, EXTREMITY COLOR WNL. PATIENT REPORTS IMPROVED NUMBNESS AND DISCOMFORT TO RIGHT THIGH. INSTRUCTIONS REVIEWED ON SIGNS/SYMPTOMS TO REPORT, PT VERBALIZED UNDERSTANDING. UPDATE GIVEN TO AMY FELDER.
--- NOTE | 2024-06-19 17:50 | NUR ---
Dressing applied by labor relations teacher nurses remains clean, dry and intact to rt groin. Area is soft to palpation and pt denies discomfort at site. Cap refill to rt leg remains brisk, and distal pulses are at baseline.
--- NOTE | 2024-06-19 18:10 | NUR ---
DC instructions reviewed with pt and daughter at length. Both express understanding. Pt is assisted to sit up on edge of bed following 6 hr bedrest period. She then ambulates to toiet in room with standby assist. No pain at rt groin site. Area remains soft to palpation and dressing is clean, dry and intact. Pt states back pain resolved. Gait is steady. IV DC'd, site wrapped with coban. She is assisted out to daughter's car by wheelchair with belongings.
== END 2024-06-19 18:10 | disposition home or self-care (01) ==
LOC: COL.CAR 07:37
PROVIDERS: Internal Medicine Cardiovascular Disease
DX: I25.10 Atherosclerotic heart disease of native coronary artery without angina pectoris (principal)
CPT/HCPCS: C1725; C1760; C1769; C1887; C1894; J0583; J1644; J2250; J3010; Q9967